=== PATIENT | male | born 1945 | race Caucasian/White ===

== ENCOUNTER 2017-01-13 20:52 | Inpatient (IN) | payer OTHER, BC ==
[~2017-01-13] VITALS: Ht 175.3 cm; Wt 80.3 kg
--- NOTE | ~2017-01-13 | H ---
[facility] [place] [address] HISTORY AND PHYSICAL Name: JEREMIAH GOLDSTEIN Room #: 315-P ADM IN M.R.#: [id number] Admission: 01/13/17 Attend Phys: Ronaldo Spaulding MD Discharge: Date of : 41 Report #: [id number] THIS REPORT FOR: //name// CC: Ronaldo Suarez DATE OF ADMISSION: 01/13/2017 DATE SEEN: 01/14/2017 ATTENDING PHYSICIAN: Dr. Spaulding. PRIMARY CARE PHYSICIAN: Jerry Suarez M.D. CHIEF COMPLAINT: Cough, fevers, chills, and shortness of breath. HISTORY OF PRESENT ILLNESS: The patient is a 71-year-old male who has not been feeling well over the last 4 days. He has developed a cough, which has been intermittently productive of some whitish colored sputum. His cough has been constant and he has been getting little rest because of it. He does have increasing shortness of breath as well. He has some chest tightness with coughing. He denies any recent exertional chest pain. He has had some subjective fevers with chills yesterday. He denies any ill contacts. He denies any prior history of lung disease. He does have known coronary artery disease and follows with Dr. Horne. In the ER, he was evaluated and noted to have mild hypoxia in the ER despite breathing treatments. Therefore, he is admitted for further evaluation. He does feel somewhat better after steroids and breathing treatments in the ER and his cough has improved since Phenergan and Codeine. PAST MEDICAL HISTORY: Diabetes, coronary artery disease with prior IA, hypertension, hyperlipidemia. PAST SURGICAL HISTORY: CABG x 5 vessels, cornea transplant. ALLERGIES: None. HOME MEDICATIONS: Zetia 10 mg daily, simvastatin 40 mg at bedtime, lisinopril 20 mg daily, metformin 1000 mg b.i.d., NovoLog insulin 16 units with meals, Lantus insulin 25 units at bedtime. SOCIAL HISTORY: The patient is a never smoker, denies any alcohol or drug use. He lives at home with his . He ambulates independently. He remains quite active. FAMILY HISTORY: There are multiple family members with coronary artery disease. There is no family member with lung disease. [address] [address] HISTORY AND PHYSICAL Name: JEREMIAH GOLDSTEIN Room #: 315-P [facility] IN M.R.#: [id number] Admission: 01/13/17 Attend Phys: Ronaldo Spaulding MD Discharge: Date of : 43 Report #: [id number] REVIEW OF SYSTEMS: The patient denies any history of ever having to see a associate professor of violin or being diagnosed with any chronic kidney disease, but he does say that his primary care physician is "watching my kidneys." All other 12-point review of systems was reviewed with the patient, otherwise negative unless stated in the HPI. PHYSICAL EXAMINATION: GENERAL: The patient is an alert male in no acute distress. VITAL SIGNS: Temperature is 36.9, heart rate 86, respirations 16, blood pressure is 131/65, oxygen 93% on 2 liters O2. HEENT: PERRLA. Sclerae is nonicteric. Oral mucosa is pink and moist. NECK: Supple, no JVD noted. CARDIAC: Normal S1, S2 with a 2/6 systolic ejection murmur. RESPIRATORY: Breath sounds are clear in bilateral upper lobes. He does have some coarseness to the left lower lobe. He is diminished in the right lower lobe. Breathing is nonlabored at rest. ABDOMEN: Soft, nontender, nondistended with positive bowel sounds. VASCULAR: No edema noted. Pedal pulses are 2+. NEUROLOGIC: The patient is alert and oriented x 3. Speech is clear. He is answering questions appropriately and following commands. No focal neuro deficits noted. LABORATORY AND DIAGNOSTICS DATA: WBC is 8.9, hemoglobin 13.6, platelets 143. Sodium 135, potassium 4.0, BUN 26, creatinine 1.6, glucose 234, bilirubin 1.4, AST is 47, alkaline phosphatase 157, influenza is negative. Troponins negative. EKG showing normal sinus rhythm and BNP is 221. Chest x-ray shows cardiomegaly. There is some suggestion of bilateral atelectasis versus scarring in the central left base. No acute chest process. ASSESSMENT AND PLAN: 1. Upper respiratory infections, mild hypoxia. Chest x-ray is not showing any pneumonia, but clinically he does have possibly early pneumonia. We will continue with Rocephin and Zithromax, add breathing treatments and try to wean oxygen as able. 2. Diabetes type 2. Continue home insulin regimen; add sliding scale insulin as long as he is on steroids. Check blood sugars a.c. and at bedtime. 3. Coronary artery disease with prior CABG. The patient is denying any chest pain. Troponins negative. 4. Hypertension. Blood pressure is stable, continue home meds. 5. Hyperlipidemia. Continue home meds. 6. Acute kidney injury versus chronic kidney disease stage III. Baseline creatinine is unknown. We will hold metformin and lisinopril and follow labs. 7. Deep vein thrombosis prophylaxis: Start Lovenox. [facility] [address] [place] [address] HISTORY AND PHYSICAL Name: JEREMIAH GOLDSTEIN Room #: 315-P ADM IN M.R.#: [id number] Admission: 01/13/17 Attend Phys: Ronaldo Spaulding MD Discharge: Date of : 43 Report #: [id number] We will continue to follow the patient closely throughout the hospitalization and make changes based on clinical status. <ELECTRONICALLY SIGNED> By: JOSETTE Snyder 01/15/17 0518 0645 [id number] JOSETTE Snyder /nt
--- NOTE | ~2017-01-13 | EKG ---
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 : 1945 Requested By: Cheri Das Order Number: [id number] MD: Kishore Urbano Measurements Intervals [place] Rate: 81 P: -40 VA: 205 QRS: -41 QRSD: 91 T: 104 QT: 353 QTc: 410 Interpretive Statements Sinus rhythm Inferior infarct, old Nonspecific ST-T wave abnormality No previous ECG available for comparison Electronically Signed On 01-14-2017 15:10:11 CDT by Kishore Urbano [email or web address] <ELECTRONICALLY SIGNED> By: Kishore Urbano MD, [facility] 01/14/17 1510 17 17 Kishore Urbano MD, [facility] /EPI
[2017-01-13 20:52] VITALS: BP 131/65
[2017-01-13] MEDS ORDERED: NOVOLOG FL100 UNIT/M SC (21:21)
[2017-01-13] MEDS ORDERED: LISINOPRIL20 MG PO (21:21)
[2017-01-13] MEDS ORDERED: SIMVASTATIN40 MG PO (21:21)
[2017-01-13] MEDS ORDERED: METFORMIN HCL500 MG PO (21:21)
[2017-01-13] MEDS ORDERED: ZETIA10 MG PO (21:21)
[2017-01-13] MEDS ORDERED: LANTUS SUBQ (21:21)
[2017-01-13 21:49] LABS: HEMATOCRIT 39.9 % (42.0-52.0); HEMOGLOBIN 13.6 gm/dL (14.0-18.0); MCH 33.9 pg (26.0-34.0); MCHC 34.2 g/dL (28.0-37.0); MCV 99.1 fL (80.0-100.0); PLATELET COUNT 143 thou/uL (150-400); RBC 4.02 mil/uL (4.50-6.00); RDW 13.2 % (10.5-14.5); WBC 8.9 thou/uL (4.0-11.0)
[2017-01-13 21:52] LABS: MANUAL DIFF YES
[2017-01-13 22:01] LABS: ANION GAP 10 mmol/L (7-16); BUN 26 mg/dL (7-18); CALCIUM 8.6 mg/dL (8.5-10.1); CHLORIDE 102 mmol/L (98-107); CO2 23 mmol/L (21-32); CREATININE 1.6 mg/dL (0.7-1.3); GLUCOSE 234 mg/dL (74-106); SODIUM 135 mmol/L (136-145)
[2017-01-13 22:10] LABS: ALBUMIN 3.4 g/dL (3.4-5.0); ALKALINE PHOSPHATASE 157 U/L (46-116); NT-PRO BRAIN NAT PEPTIDE 221 pg/mL (<300); SGOT 47 U/L (15-37); SGPT 64 U/L (30-65); TOTAL BILIRUBIN 1.4 mg/dL (<0.1-1.0); TOTAL PROTEIN 7.3 g/dL (6.4-8.2); TROPONIN-I < 0.04 ng/mL (<0.04-0.07)
[2017-01-13 23:31] LABS: ABSOLUTE NEUTROPHILS 7.8 thou/uL (1.4-8.2); TOTAL CELL COUNT 100
[2017-01-13 23:50] VITALS: BP 148/72
[2017-01-14 00:10] VITALS: BP 138/62
[2017-01-14 04:00] VITALS: BP 116/70
[2017-01-14 08:00] VITALS: BP 112/60
[2017-01-14 16:00] VITALS: BP 123/62
[2017-01-14 20:00] VITALS: BP 115/55
[2017-01-15 04:28] VITALS: BP 110/63
[2017-01-15 07:11] LABS: CALCIUM 7.8 mg/dL (8.5-10.1); CREATININE 1.3 mg/dL (0.7-1.3); POTASSIUM 4.3 mmol/L (3.5-5.1)
[2017-01-15 08:42] VITALS: BP 118/61
[2017-01-15 17:52] VITALS: BP 128/62
[2017-01-15 20:00] VITALS: BP 125/62
[2017-01-16 04:00] VITALS: BP 132/69
[2017-01-16 06:56] LABS: HEMATOCRIT 40.4 % (42.0-52.0); HEMOGLOBIN 13.6 gm/dL (14.0-18.0); MCH 33.3 pg (26.0-34.0); MCHC 33.6 g/dL (28.0-37.0); MCV 99.1 fL (80.0-100.0); RBC 4.08 mil/uL (4.50-6.00); RDW 13.3 % (10.5-14.5)
[2017-01-16 07:11] LABS: CREATININE 1.2 mg/dL (0.7-1.3)
[2017-01-16 07:56] VITALS: BP 143/72
[2017-01-16 11:17] VITALS: BP 148/72
[2017-01-16 15:51] VITALS: BP 151/67
[2017-01-16 20:45] VITALS: BP 135/63
[2017-01-17 05:55] VITALS: BP 162/69
[2017-01-17 06:35] LABS: HEMATOCRIT 43.9 % (42.0-52.0); HEMOGLOBIN 14.8 gm/dL (14.0-18.0); MCH 33.4 pg (26.0-34.0); MCHC 33.6 g/dL (28.0-37.0); MCV 99.2 fL (80.0-100.0); RBC 4.42 mil/uL (4.50-6.00); RDW 13.4 % (10.5-14.5); WBC 10.7 thou/uL (4.0-11.0)
[2017-01-17 06:46] LABS: CALCIUM 8.2 mg/dL (8.5-10.1); CREATININE 1.4 mg/dL (0.7-1.3)
[2017-01-17 08:09] VITALS: BP 172/84
[2017-01-17] MEDS ORDERED: CEFDINIR300 MG PO (10:13)
[2017-01-17] MEDS ORDERED: VENTOLIN HFA 1818 GM INH (10:13)
[2017-01-17] MEDS ORDERED: PREDNISONE 10 M10 MG PO (10:13)
[2017-01-17] MEDS ORDERED: PROMETHAZINE-C120 ML PO (10:14)
[2017-01-17] MEDS ORDERED: MUCINEX TA600 MG/TA1 PO (10:15)
[2017-01-17 10:18] VITALS: BP 172/84
== END 2017-01-17 10:45 | disposition home or self-care (01) | DRG 177 ==
LOC: ER 20:52 → EROBS 23:22 → 3N 23:22
PROVIDERS: Emergency Medicine; Hospitalist; Nurse Practitioner Acute Care
DX: J15.6 Pneumonia due to other Gram-negative bacteria (principal); J96.01 Acute respiratory failure with hypoxia; N17.9 Acute kidney failure, unspecified; J18.9 Pneumonia, unspecified organism; E11.9 Type 2 diabetes mellitus without complications; I10 Essential (primary) hypertension; I25.10 Atherosclerotic heart disease of native coronary artery without angina pectoris; E78.5 Hyperlipidemia, unspecified; J06.9 Acute upper respiratory infection, unspecified; Z95.1 Presence of aortocoronary bypass graft; Z94.7 Corneal transplant status; I25.2 Old myocardial infarction; Z79.899 Other long term (current) drug therapy; Z82.49 Family history of ischemic heart disease and other diseases of the circulatory system
CPT/HCPCS: 10096

== ENCOUNTER 2017-08-10 07:34 | Observation (INO) | payer OTHER, BC ==
[~2017-08-10] VITALS: Ht 175.3 cm; Wt 82.6 kg
[2017-08-10] VITALS (16 sets, daily range): BP systolic 131–168; BP diastolic 59–83
--- NOTE | ~2017-08-10 | CATHLAB ---
[facility] [place] [address] INVASIVE PROCEDURE REPORT Name: ANGELITAJEREMIAH Renetta Room #: 217-P [facility] IN [facility]#: [id number] Admission: 08/10/17 Attend Phys: Eber Horne, Discharge: 08/11/17 Date of : 41 Date of Service: 08/13/17 1735 Report #: [id number] THIS REPORT FOR: //name// APPROVED REPORT Patient Details Patient Status: Out-Patient Room #: The patient is a 71 year-old male Event Personnel Eber Horne Senior Power Scheduler, Christine Siegel CVT Monitor, Pietro Meneses RN, Pardeep Shaw RT(R)(CV) Scrub Procedures Performed Art Access - R femoral artery* 14151 Initial Mod Sed Same Phys/QHP Gr5y 617544 35866 Mod Sed Same Phys/QHP Ea 275333 SKYE Place w/wo Plasty Single OM 808047 Hemostasis with Manual pressure Procedure Narrative The patient was brought electively to the Cardiac Catheterization Laboratory and was prepped and draped in a sterile manner. A PINNACLE 6FR Sheath #[id number] sheath was inserted into the RFA 6fr^. Coronary angiography was performed using coronary diagnostic catheters. The patient tolerated the procedure well and there were no complications associated with the procedure. There was no hematoma. Intraoperative Conscious Sedation Sedation start time: 08:47 Case end Time: 09:06 Fentanyl 25.0 mcg Versed 1.5 mg Fluoro Time: 7.50 minutes Dose: DAP 5211.00 cGycm2 674 mGy Contrast Type and Amount: Omnipaque 40 ml Hemodynamics The aortic pressure is 149/61 mmHg with a mean of 164 mmHg. PCI Technique Lesion Percutaneous coronary intervention was performed on the first obtuse marginal branch segment. A LAUNCHER 6FR JR 4 #[id number] Guide Catheter was used to engage the ostium. A Luge Wire .014 x 182CM #[id number] Interventional Guidewire was used to cross the lesion. BALLOON DILATION [facility] [address] [place] [address] INVASIVE PROCEDURE REPORT Name: JEREMIAH GOLDSTEIN Room #: 217-P [facility]#: [id number] Admission: 08/10/17 Attend Phys: Eber Horne, Discharge: 08/11/17 Date of : 41 Date of Service: 08/13/17 1735 Report #: [id number] A Balloon catheter Sprinter OTW 2.5 x 15 #[id number] was inserted and inflated up to 12.00atm for 10seconds. STENT DEPLOYMENT A drug-eluting stent RESOLUTE OTW 3.0 X 15 #[id number] was inserted and inflated up to 14.00atm for 55seconds. Additional Inflation: 18.00atm for 17seconds. Conclusion #1 successful PTCA stent of a mid SVG to OM graft distal to previously placed stents 98% to 0% with placement of a 30 by 15 resolute drug-eluting stent postdilated 3.3 mm in size Recommendations plan continue aggressive risk factor modification dual antiplatelet therapy indefinitely. To CCU follow stent protocol <ELECTRONICALLY SIGNED> By: Eber Horne MD, FACC 08/13/17 1735 34 173 Eber Horne MD, FACC /INF
--- NOTE | ~2017-08-10 | EKG ---
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: BEBE : 1945 Requested By: Eber Horne Order Number: [id number] MD: Kishore Urbano Measurements Intervals [place] Rate: 70 P: -8 [place]: 219 QRS: -50 QRSD: 93 T: 123 QT: 379 QTc: 409 Interpretive Statements Sinus rhythm Borderline prolonged OH interval Inferior infarct, old Poor R wave progression ST and T wave abnormality, consider lateral ischemia Compared to ECG 01/13/2017 21:18:13 No significant change was found Electronically Signed On 08-12-2017 9:50:49 REEL WINDER by Kishore Urbano [email or web address] <ELECTRONICALLY SIGNED> By: Kishore Urbano MD, [facility] 08/12/17 0950 0758 0758 Kishore Urbano MD, [facility] /EPI
[~2017-08-10 07:34] MED LIST: CEFDINIR300 MG PO; LANTUS SUBQ; LISINOPRIL20 MG PO; METFORMIN HCL500 MG PO; MUCINEX TA600 MG/TA1 PO; NOVOLOG FL100 UNIT/M SC; PREDNISONE 10 M10 MG PO; PROMETHAZINE-C120 ML PO; SIMVASTATIN40 MG PO; VENTOLIN HFA 1818 GM INH; ZETIA10 MG PO
[2017-08-10] MEDS ORDERED: ZETIA10 MG PO (08:01)
[2017-08-10 08:04] LABS: HEMATOCRIT 47.5 % (42.0-52.0); HEMOGLOBIN 15.7 gm/dL (14.0-18.0); MCH 33.7 pg (26.0-34.0); MCHC 33.2 g/dL (28.0-37.0); MCV 101.7 fL (80.0-100.0); RBC 4.67 mil/uL (4.50-6.00); RDW 13.5 % (10.5-14.5); WBC 4.9 thou/uL (4.0-11.0)
[2017-08-10 08:08] LABS: CALCIUM 9.4 mg/dL (8.5-10.1); CREATININE 1.4 mg/dL (0.7-1.3); POTASSIUM 3.8 mmol/L (3.5-5.1)
[2017-08-10] MEDS ORDERED: METFORMIN HCL500 MG PO (11:50)
[2017-08-10] MEDS ORDERED: PLAVIX 75 MG TA75 M1 PO (11:51)
[2017-08-10] MEDS ORDERED: ASPIR-TRIN325 MG PO (11:53)
[2017-08-11 03:18] VITALS: BP 138/68
[2017-08-11 04:32] LABS: HEMATOCRIT 43.5 % (42.0-52.0); HEMOGLOBIN 14.5 gm/dL (14.0-18.0); MCH 33.6 pg (26.0-34.0); MCHC 33.4 g/dL (28.0-37.0); MCV 100.3 fL (80.0-100.0); RBC 4.34 mil/uL (4.50-6.00); RDW 13.7 % (10.5-14.5); WBC 5.4 thou/uL (4.0-11.0)
[2017-08-11 05:05] LABS: CALCIUM 8.8 mg/dL (8.5-10.1); CREATININE 1.4 mg/dL (0.7-1.3)
[2017-08-11 05:08] LABS: TROPONIN-I 1.33 ng/mL (<0.06)
[2017-08-11 05:36] LABS: TSH 0.8 uIU/mL (0.358-3.740)
[2017-08-11 07:52] VITALS: BP 130/70
[2017-08-11 10:39] LABS: CHOLESTEROL 126 mg/dL (<200); HDL CHOLESTEROL 52 mg/dL (>40); LDL CHOLESTEROL 62 mg/dL (<100); TC:HDL 2.4 Ratio (Not establshd); TRIGLYCERIDE 63 mg/dL (<150); VLDL 13 mg/dL (<40)
[2017-08-11 12:16] VITALS: BP 134/71
[2017-08-11 15:49] VITALS: BP 134/71
== END 2017-08-11 16:30 | disposition home or self-care (01) ==
LOC: CATH 07:34 → 2N 11:33
PROVIDERS: Internal Medicine Cardiovascular Disease; Psychiatry & Neurology Neurology; Psychiatry & Neurology Neuromuscular Medicine
DX: I25.10 Atherosclerotic heart disease of native coronary artery without angina pectoris (principal); R53.1 Weakness; I10 Essential (primary) hypertension; E78.00 Pure hypercholesterolemia, unspecified; G45.1 Carotid artery syndrome (hemispheric); E11.9 Type 2 diabetes mellitus without complications

== ENCOUNTER → 2018-10-10 | Outpatient (CLI) | payer OTHER, BC ==
[~2018-10-10] MED LIST changes: +ASPIR-TRIN325 MG PO; +PLAVIX 75 MG TA75 M1 PO
[2018-10-10 08:21] LABS: CREATININE 1.5 mg/dL (0.7-1.3)
== END ==
LOC: CAT 07:04
PROVIDERS: Family Medicine
DX: N20.0 Calculus of kidney (principal); K80.80 Other cholelithiasis without obstruction; R18.8 Other ascites; K74.69 Other cirrhosis of liver; J90 Pleural effusion, not elsewhere classified; J98.11 Atelectasis; M47.816 Spondylosis without myelopathy or radiculopathy, lumbar region

== ENCOUNTER → 2019-05-12 | Outpatient (CLI) | payer OTHER, BC ==
[~2019-05-12] VITALS: Ht 175.3 cm; Wt 83.0 kg
[~2019-05-12] MED LIST changes: +ALDACTONE50 MG PO; +LASIX 20 MG TAB20 MG PO; +VISTARIL 25 MG25 M1 PO
[2019-05-12 10:34] VITALS: BP 128/55
[2019-05-12 11:08] LABS: INR 1.1
[2019-05-12 12:11] VITALS: BP 107/36
[2019-05-12 12:28] VITALS: BP 120/49
[2019-05-12 12:33] VITALS: BP 113/49
[2019-05-12 12:38] VITALS: BP 107/46
[2019-05-12 12:54] VITALS: BP 113/46
[2019-05-12 12:54] LABS: CLARITY CLOUDY; COLOR DARK YELLOW; SOURCE ABDOMINAL; TOTAL VOLUME 35 mL
--- NOTE | 2019-05-12 12:58 | NUR ---
PT RETURNED FROM IR AWAKE AND ALERT. HAS BANDAID TO UPPER ABD BX SITE AND FOAM TAPE TO RT SIDE ABD WHERE FLUID WAS DRAINED. BOTH DRESSINGS C/D/I. PT ABD SOFT, NON-DISTENDED. PT TO LAY FLAT X1 HOUR THEN CAN DC HOME. FOOD TRAY ORDERED, PT GIVEN WATER.
[2019-05-12 13:21] LABS: BF NUCLEATED CELLS 183; BF RBC 1422
[2019-05-12 14:04] LABS: BF MACROPHAGE 31; BF NEUTROPHILS 20
[2019-05-13 10:08] LABS: SOURCE ABDOMINAL
[2019-05-13 16:10] LABS: BODY FLUID ALBUMIN 0.6 g/dL (()); BODY FLUID AMYLASE 21 U/L (()); BODY FLUID GLUCOSE 145 mg/dL (()); BODY FLUID LDH 43 IU/L (()); BODY FLUID PROTEIN 0.6 g/dL (())
--- NOTE | 2019-05-14 14:06 | PATH ---
[facility] [address] [place] [address] PATHOLOGY RPT PROCEDURE Name: JEREMIAH GOLDSTEIN Room #: REG [facility]#: [id number] Admission: 05/12/19 Date of : 41 Discharge: Report #: [id number] Path Case #: [id number] Note [facility] Accession Number: [id number] TESTS RESULT FLAG UNITS REF RANGE LAB Clinician Provided Cytology Information No. of containers..01 Other (Miscellaneous) Source: 01 ABDOMINAL FLUID DIAGNOSIS: 02 ABDOMINAL FLUID NEGATIVE FOR MALIGNANT CELLS. REACTIVE MESOTHELIAL CELLS ARE PRESENT. THIS INTERPRETATION INCLUDES EVALUATION OF A CELL BLOCK. Signed out by: 02 Thom Weaver MD, Pathologist NPI- [id number] Performed by: 01 Airam Brito, Compliance Testing Analyst ([facility]) Gross description: 01 10ML, YELLOW, CLOUDY /LCS FLAG LEGEND: L-Low Normal,H-High Normal,LL-Alert Low,HH-Alert High <-Panic Low,>-Panic High,A-Abnormal,AA-Critical Abnormal Performed at: [address] [place] [address] Pérez Styles MD, [address] [address] Karina Sotelo MD, Specimen Comment: A duplicate report has been generated due to demographic updates. Performed at: [address], [place], [place] [address] MD Pérez Styles MD Phone: [phone]
--- NOTE | 2019-05-27 13:06 | PATH ---
[facility] [address] [place] [address] PATHOLOGY RPT PROCEDURE Name: SHINE MERRILL Renetta Room #: REG [facility] Shea.#: [id number] Admission: 05/12/19 Date of : 41 Discharge: Report #: [id number] Path Case #: [id number] [facility] Accession Number: [id number] . 01 Material submitted: . liver - LIVER BIOPSY . 01 Clinical history: . Cirrhosis, . 02 Diagnosis: Liver, needle biopsy: - Cirrhosis, with chronic cholestatic features, rare epithelioid granulomata, minimal lobular necro-inflammatory activity, and mild interface activity (Stage 4/4 Grade 1-2/4) - (see comment) (MLK: 05/27/2019) . The case was prepared and proofread by Dr. Sierra and electronically released by Dr. Weaver. QTP/05/27/2019 . 02 Comment: History: 73 year old male with a h/o diabetes mellitus and cirrhosis. 05/09/2019 Glc - 239, AST- 66, ALT - 64, Alk Phos - 267, Tbili - 0.8, T Protein - 6.2, Alb - 3.4 plt 174k . The liver biopsy shows mildly active cirrhosis with chronic cholestatic features, rare epithelioid granulomata and minimal steatosis, in keeping with the cholestatic pattern of LFT abnormality. Chronic cholestasis certainly can arise in the setting of long standing cirrhosis, but granulomatous inflammation also typically associated with cholestatic injury. . The differential diagnosis for hepatic granulomata is quite lengthy and includes, infectious etiologies, adverse drug reactions. sarcoidosis, autoimmune disease, and rarely as a paraneoplastic phenomenon. Please correlate clinically. (MLK: 05/27/2019) . 02 Electronically signed: . Thom Weaver MD, Pathologist NPI- [id number] . 01 Gross description: . The specimen is received in formalin, labeled "Shine Merrill, liver BX X3 ", are three needle cores of hastings-brown soft tissue measuring 0.7 cm, [address] [address] PATHOLOGY RPT PROCEDURE Name: SHINE MERRILL Room #: REG [facility].#: [id number] Admission: 05/12/19 Date of : 41 Discharge: Report #: [id number] Path Case #: [id number] 0.9 cm and 1.4 cm in length and up to 0.1 cm in diameter. The specimen is entirely submitted in A1-A3. (SWS; 05/12/2019) SHS/SHS . 02 Microscopic: . There is cirrhosis with bands of fibrous connective tissue surrounding regenerative nodules. The trichrome stain highlights the fibrous bands and also accentuates prominent bile ductular proliferation, with its typically associated neutrophilic infiltrate. Interlobular bile ducts show mild to moderate injury, with areas of nuclear dropout and reactive change. Juliana-septal hepatocytes show features of cholate stasis with a rarified, bubbly appearing cytoplasm. Many of these same hepatocytes contain large Namita -Denk bodies. Scattered lipogranulomas are noted. Macro-vesicular steatosis is minimal . At the edge of one of the needle cores are two small epithelioid granulomas. Special stains for organisms are not performed due to the limited amount of granulomatous inflammation. . The reticulin stain outlines irregularly thickened hepatic plates compatible with regenerative nodule formation. The iron stain is negative. The PAS stain shows glycogenated hepatocytes. Numerous ceroid laden Kupffer cells are noted on the PASD stain, compatible with previous hepatocyte dropout. (MLK: 05/27/2019) . 02 Pathologist provided ICD-10: K74.60, K75.3, K76.0 . 02 CPT . 785428, 673487, 905418, 305125, 439801 Specimen Comment: A courtesy copy of this report has been sent to Specimen Comment: [phone], , . Specimen Comment: Report sent to ,DR SPEARS / DR LUKE Performed at: 01 [facility] [address] [facility] [address], [place] [id number] MD Pérez Styles MD Phone: [phone] Performed at: [address] [place] [facility] [address] [place], [place] [id number] MD Emile Lopez MD Phone: [phone]
== END | disposition home or self-care (01) ==
LOC: ULTRA 09:57
PROVIDERS: Radiology Vascular & Interventional Radiology; Specialist
DX: R18.8 Other ascites (principal); K75.3 Granulomatous hepatitis, not elsewhere classified; K74.60 Unspecified cirrhosis of liver; K76.0 Fatty (change of) liver, not elsewhere classified; I10 Essential (primary) hypertension; I25.10 Atherosclerotic heart disease of native coronary artery without angina pectoris; I25.2 Old myocardial infarction; E11.9 Type 2 diabetes mellitus without complications; K21.9 Gastro-esophageal reflux disease without esophagitis; E78.5 Hyperlipidemia, unspecified; Z79.4 Long term (current) use of insulin; Z94.7 Corneal transplant status; Z79.899 Other long term (current) drug therapy; Z95.1 Presence of aortocoronary bypass graft; Z98.61 Coronary angioplasty status; Z86.73 Personal history of transient ischemic attack (TIA), and cerebral infarction without residual deficits; Z98.890 Other specified postprocedural states

== ENCOUNTER → 2019-06-05 | Outpatient (CLI) | payer OTHER, BC ==
[~2019-06-05] MED LIST changes: +ASPIR 8181 M1 PO
[2019-06-05 13:17] LABS: INR 1.1
[2019-06-05 14:20] VITALS: BP 124/49
--- NOTE | 2019-06-05 14:54 | NUR ---
CAME TO THE CLINIC FROM ULTRASOUND DEPT POST PARACENTESIS. ALERT AND ORIENTED X 4. DENIED PAIN. NO LEAKAGE NOTED FROM PARACENTESIS SITE. 5L ASCITIC FLUID REMOVED IN ULTRA SOUND. PER ORDER, IF 4-6L FLUID REMOVED GIVE 25 GMS ALBUMIN IV, WHICH WAS GIVEN. TOLERATED INFUSION WELL. WITH PATIENT. REMOVED IV AND DISMISSED IN STABLE CONDITION.
== END | disposition home or self-care (01) ==
LOC: ULTRA 08:52
PROVIDERS: Specialist
DX: R18.8 Other ascites (principal); Z98.890 Other specified postprocedural states; Z87.01 Personal history of pneumonia (recurrent); Z86.73 Personal history of transient ischemic attack (TIA), and cerebral infarction without residual deficits; Z79.82 Long term (current) use of aspirin; Z79.899 Other long term (current) drug therapy; Z79.4 Long term (current) use of insulin
CPT/HCPCS: 95000

== ENCOUNTER → 2019-07-28 | Outpatient (CLI) | payer OTHER, BC ==
[~2019-07-28] MED LIST changes: +HYDROXYZINE HCL25 M2 PO; +LACTULOSE PO; +LEVEMIR FL100 UNIT/2 SUBQ; +LISINOPRIL2.5 MG PO; +OMEPRAZOLE 20 M20 M1 PO; +ROXICODONE5 M2 PO; +VITAMIN E1000 UNIT PO
== END ==
LOC: OPONC 07-25 13:36
DX: K74.60 Unspecified cirrhosis of liver (principal); R18.8 Other ascites

== ENCOUNTER 2019-08-07 15:01 | Inpatient (IN) | payer OTHER, BC ==
[~2019-08-07] VITALS: Ht 172.7 cm; Wt 76.7 kg
--- NOTE | ~2019-08-07 | HC ---
[facility] [place] [address] CONSULTATION Name: JEREMIAH GOLDSTEIN Room #: 463-P ADM IN M.R.#: [id number] Admission: 08/07/19 Attend Phys: Ronaldo Spaulding MD Discharge: Date of : 41 Report #: [id number] THIS REPORT FOR: //name// CC: Ronaldo Pollocktashia DATE OF SERVICE: 08/11/2019 HISTORY OF PRESENT ILLNESS: The patient is a 73-year-old male with history of end-stage liver disease, has followed with [facility] with consideration for liver transplant. He did have a fall after climbing two steps into his house. He hit his head on the concrete, had a laceration of his occiput. His noted that he was stunned, would not respond for at least a minute before gradually starting to answer. CT of the head was negative. He has had problems with worsening functional mobility with gait instability over the past few weeks. He also sustained left-sided rib fractures noted to involve the left 7th and 8th ribs. The patient has since underwent a paracentesis on 08/08/2019. There is a documentation of some encephalopathy. He has acute on chronic renal insufficiency. He does have the chronic abdominal distention secondary to ascites. He also has an old cerebrovascular accident with some residual left-sided hemiparesis. We are seeing him now in rehabilitation medicine consultation. PAST MEDICAL HISTORY His prior medical history is delineated above. He does have a history of diabetes mellitus type 2, coronary artery bypass grafting x 5, coronary transplant, coronary artery disease, hypertension, coronary angioplasty, cirrhosis/diabetic induced paracentesis. indicates that the plan is for him to have regular paracentesis on a weekly basis on Fridays. MEDICATIONS: Please see the full medication listing. ALLERGIES: No known drug allergies. HABITS: No history of tobacco or alcohol abuse is noted. SOCIAL HISTORY: Lives in a house with his , 2 steps in. is retired. son, has placed a toilet seat, rails, and steps and had a handheld shower. REVIEW OF SYSTEMS: No complaints of chest pain, shortness of breath or abdominal discomfort. He has developed a wound noted on his buttocks with nursing closely involved. PHYSICAL EXAMINATION: GENERAL: A 73-year-old white male in no obvious distress. VITAL SIGNS: Last recorded temperature 97.9, pulse 69, respirations 16, blood pressure 109/56. [facility] [address] [place] [address] CONSULTATION Name: JEREMIAH GOLDSTEIN Room #: 463-P [facility] IN [facility].#: [id number] Admission: 08/07/19 Attend Phys: Ronaldo Spaulding MD Discharge: Date of : 41 Report #: [id number] NEUROLOGIC: He is alert, pleasant, and oriented. There is a definite latency to his responses however. Tends to defer some of his answers to his . He will follow basic 1 step commands. Facies appeared to be symmetric. He does have definite abdominal distention. He has the occipital area, which is dressed. I did not examine his buttock area where he is noted to have a skin breakdown. EXTREMITIES: He has functional range of motion of both upper and lower extremities. Appears to have some slight decreased strength of that left upper extremity 4- compared to the right upper extremity, which is more of a grade 4/5. Left lower extremity is probably at 3+ to 4- compared to the right, which is more of a 4-. DTRs are trace to 1. Sensation was reasonably intact to simultaneous stimulation. He is min assist with sit to stand. Gait was 150 feet min assist with a front-wheeled walker. ASSESSMENT: A 73-year-old white male with the following problem list: 1. Fall on concrete with head injury and occipital laceration. 2. Encephalopathy, which is documented. Appears toxic metabolic. 3. Gait instability with frequent falls. 4. Prior cerebrovascular accident with mild residual right-sided weakness. 5. End-stage liver disease, status post paracentesis. 6. Acute renal insufficiency superimposed on chronic kidney disease. 7. Left 7th and 8th rib fractures post fall. 8. Diabetes mellitus type 2. 9. Buttock area of breakdown. 10. Generalized weakness and debilitation. 11. Hyponatremia, sodium of 123. PLAN: The patient is a candidate for an acute in-hospital inpatient rehabilitation stay. ____ on transfer to the [address] [place] [address] acute inpatient rehab santos when medically ready and a bed available. By: 1435 0037 Arvin Warren MD /nt
[~2019-08-07 15:01] MED LIST changes: -HYDROXYZINE HCL25 M2 PO; -LACTULOSE PO; -LEVEMIR FL100 UNIT/2 SUBQ; -LISINOPRIL2.5 MG PO; -OMEPRAZOLE 20 M20 M1 PO; -ROXICODONE5 M2 PO; -VITAMIN E1000 UNIT PO
[2019-08-07 15:09] VITALS: BP 130/24
[2019-08-07] MEDS ORDERED: ROXICODONE5 M2 PO (16:12)
[2019-08-07 17:19] LABS: INR 1.1
[2019-08-07 18:00] LABS: HEMATOCRIT 37.6 % (42.0-52.0); HEMOGLOBIN 12.2 gm/dL (14.0-18.0); MCH 31.7 pg (26.0-34.0); MCHC 32.6 g/dL (28.0-37.0); MCV 97.2 fL (80.0-100.0); RBC 3.86 mil/uL (4.50-6.00); WBC 11.4 thou/uL (4.0-11.0)
[2019-08-07 18:08] LABS: CALCIUM 9.2 mg/dL (8.5-10.1); CREATININE 2.2 mg/dL (0.7-1.3); POTASSIUM 5.4 mmol/L (3.5-5.1)
[2019-08-07 18:15] LABS: ALBUMIN 2.8 g/dL (3.4-5.0); TOTAL PROTEIN 7.5 g/dL (6.4-8.2)
[2019-08-07 19:19] LABS: ALBUMIN 2.9 g/dL (3.4-5.0); TOTAL PROTEIN 7.1 g/dL (6.4-8.2)
[2019-08-07 19:28] VITALS: BP 112/53
[2019-08-07 20:19] LABS: TSH 2.033 uIU/mL (0.358-3.740)
[2019-08-07 20:43] VITALS: BP 115/41
[2019-08-07 21:10] VITALS: BP 128/63
--- NOTE | 2019-08-07 23:51 | NUR ---
ADMISSION ASSESSMENT COMPLETED.PT ACCOMPANIED BY . PT IS ALERT AND ORIENTED X 4. HE IS VERY WEAK. WAS ABLE TO WALK TO THE BATHROOM-HE JUST NEEDS EXTRA TIME. PT HAD A BM. VOIDING OKAY. SOME PEDAL EDEMA.C/O ABDOMINAL DISCOMFORT DUE TO ASCITES. HE HAS PAIN WITH MOVEMENT.PAIN WELL MANAGED WITH FENTANYL. BY BEDSIDE. ELEVATED HS BLOOD SUGAR-PT REPORTS HE DID NOT TAKE ANY INSULIN THE WHOLE DAY.FALL PREC IN PLACE.CALL LIGHT WITHIN REACH.
[2019-08-08 05:06] VITALS: BP 124/70
[2019-08-08 06:13] LABS: HEMATOCRIT 36.3 % (42.0-52.0); HEMOGLOBIN 11.8 gm/dL (14.0-18.0); MCH 31.9 pg (26.0-34.0); MCHC 32.6 g/dL (28.0-37.0); MCV 97.9 fL (80.0-100.0); RBC 3.71 mil/uL (4.50-6.00); RDW 15.1 % (10.5-14.5); WBC 9.1 thou/uL (4.0-11.0)
[2019-08-08 06:22] LABS: CREATININE 2.2 mg/dL (0.7-1.3); MAGNESIUM 2.5 mg/dL (1.8-2.4)
[2019-08-08 06:30] LABS: INR 1.1; PROTIME 11.6 Seconds (9.3-11.4)
[2019-08-08 07:59] VITALS: BP 114/59
[2019-08-08 08:49] LABS: ALBUMIN 2.6 g/dL (3.4-5.0); DIRECT BILIRUBIN 0.5 mg/dL (<0.1-0.3); TOTAL PROTEIN 6.9 g/dL (6.4-8.2)
[2019-08-08 10:17] LABS: URINE BILIRUBIN NEGATIVE (Negative); URINE BLOOD NEGATIVE (Negative); URINE CLARITY CLEAR; URINE COLOR YELLOW; URINE GLUCOSE-RANDOM* TRACE (Negative); URINE KETONES NEGATIVE (Negative); URINE LEUKOCYTES NEGATIVE (Negative); URINE NITRITE NEGATIVE (Negative); URINE PROTEIN (DIPSTICK) NEGATIVE (Negative); URINE SPECIFIC GRAVITY 1.025 (1.005-1.035); URINE UROBILINOGEN 0.2 E.U./dl (0.2-1.0)
--- NOTE | 2019-08-08 10:51 | NUR ---
WOUND CARE NOTE spouse in room, states pressure injury started several months ago, she treated area w/ iodine and improved but in last week reopened, pt sits in chair several hours a day and is unable to lay on side in bed due to abd discomfort, strongly encouraged off loading, pressure relief. sitting on gel or pressure relief cushion, sacral wound ~4cm x 3cm x.3cm, pinkish tissue, scant drainage, blanchabe, pt and spouse verbalized understanding of care, spouse states may dc tomorrow. suggested home health if needed or f/u w/ pcp or wound dr if worsens recommendations: off loading as much as possible, turn q2 while awake, pressure relief pillow or gel, zguard w/ border foam drsg daily and prn
[2019-08-08 12:32] LABS: CLARITY HAZY; COLOR YELLOW; SOURCE ASCITES; TOTAL VOLUME 22 mL
[2019-08-08 12:50] LABS: BF NUCLEATED CELLS 145; BF RBC 577
--- NOTE | 2019-08-08 13:33 | NUR ---
INITIAL ASSESSMENT: SW reviewed chart and spoke with nursing. Pt was admitted from home after a fall. Pt with rib fx and hx of end stage liver disease. Pt is being evaluated at [facility] for a liver transplant. Pt sees Dr. Liu as an outpatient. His last outpatient paracentesis was on 07/31 and had 6L removed. Pt off the unit having paracentesis earlier today. Per chart, pt lives at home with his . Prior to admission, pt was independent with ADLs. Pt does have a cane. 2 steps into the home. Pt's needs can be met on the ground level. Pt's PCP is Dr. Suarez. Plan is for pt to discharge home when medically stable. EULOGIO is following to assist as needed with discharge planning.
[2019-08-08 13:35] LABS: BF MACROPHAGE 29; BF NEUTROPHILS 5
[2019-08-08 15:09] VITALS: BP 108/49
--- NOTE | 2019-08-08 15:11 | NUR ---
Nutrition: REC consider adding 2 gm Na+ restriction if pt continues to eat well.
[2019-08-08 15:21] LABS: URINE CREATININE-RANDOM* 201.1 mg/dL
--- NOTE | 2019-08-08 20:07 | NUR ---
Assumed Pt care @ 0700am. Assessment completed, VSS, A&Ox4. Pt scheduled for paracentesic and pulled off 4.7 liters. Pt fell and is sore on sacrum and left side. Pain is noted from Pt's grimace but Pt rarely asks for meds so offered to provide pain med when adjusting Pt in bed or so Pt can rest. Pt on low dose SS. Albumin ordered for Pt and infused due to pulling over 4 liters. Pt tolerates meals well. and son present today.
[2019-08-08 20:12] VITALS: BP 108/56
[2019-08-09 05:10] LABS: ALBUMIN 2.6 g/dL (3.4-5.0); CALCIUM 8.5 mg/dL (8.5-10.1); CREATININE 1.8 mg/dL (0.7-1.3); PHOSPHORUS 3.1 mg/dL (2.5-4.9); POTASSIUM 4.8 mmol/L (3.5-5.1)
--- NOTE | 2019-08-09 05:27 | NUR ---
Pt. rested quietly at intervals during the night when checked on during frequent rounds. He c/o sacral pain and was given po pain meds (see emar) with some relief noted. Up to the bathroom with assistance of one and gait belt. Bed alarm is on.
[2019-08-09 08:00] VITALS: BP 109/48
[2019-08-09 08:38] LABS: SOURCE ABDOMINAL
[2019-08-09 15:00] VITALS: BP 101/48
--- NOTE | 2019-08-09 16:49 | NUR ---
PATIENT ALERT AND ORIENTED X4, PAIN MILDLY CONTROLLED WITH PO MEDICATION. LIDOCAIN PATCH ORDERED AND PLACED TO LEFT BACK AREA WITH SOME IMPROVEMENT. PATIENT UP TO CHAIR FOR THE DURATION OF THE SHIFT. NO SIGNS OF ACUTE DISTRESS NOTED AT THIS TIME. WILL CONTINUE TO MONITOR.
[2019-08-09 20:04] VITALS: BP 108/61
--- NOTE | 2019-08-10 05:06 | NUR ---
Pt. rested quietly at intervals during the night when checked on during frequent rounds. He did c/o back pain and was medicated (see emar) with some relief noted. Bed alarm is on.
[2019-08-10 06:06] LABS: ALBUMIN 3.4 g/dL (3.4-5.0); CALCIUM 8.3 mg/dL (8.5-10.1); CREATININE 1.8 mg/dL (0.7-1.3); PHOSPHORUS 2.7 mg/dL (2.5-4.9); POTASSIUM 4.7 mmol/L (3.5-5.1)
[2019-08-10 08:06] LABS: BODY FLUID ALBUMIN 0.3 g/dL (Not Estab.); BODY FLUID AMYLASE 29 U/L (()); BODY FLUID GLUCOSE 221 mg/dL (()); BODY FLUID LDH 48 IU/L (()); BODY FLUID PROTEIN 0.8 g/dL (())
[2019-08-10 08:08] VITALS: BP 116/66
--- NOTE | 2019-08-10 12:34 | NUR ---
PT A&OX4, VSS, PAIN IN RIBS AND BACK. PAIN MEDICATION GIVEN. LUNGS CLEAR, NO SIGNS OF DISTRESS. PATIENT TOLERATING DIET. ABDOMEN DISTENDED, BOWEL SOUNDS ACTIVE. CLARISSA REMAIN IN BACK OF HEAD. WILL CONTINUE TO MONITOR PATIENT.
[2019-08-10 16:00] VITALS: BP 112/61
[2019-08-10 19:50] VITALS: BP 119/53
[2019-08-11 00:09] VITALS: BP 109/56
--- NOTE | 2019-08-11 05:00 | NUR ---
Assessments completed. pt a&ox4. no major changes overnight. pain controlled with current regimen. v/s stable. following POC. no s/s of distress. cont monitoring
[2019-08-11 05:08] LABS: CALCIUM 8.7 mg/dL (8.5-10.1); CREATININE 1.8 mg/dL (0.7-1.3); PHOSPHORUS 2.9 mg/dL (2.5-4.9); POTASSIUM 4.9 mmol/L (3.5-5.1)
--- NOTE | 2019-08-11 11:03 | NUR ---
WOUND CARE F/U wound assessed w/ direct support staff member Santa, sacral wound w/ some healing present but dti present left edge wound, blanchable, scant drainage, c/o pain w/ ulcer but states zguard and border drsg relieves some pain, strongly encouraged to turn more in bed, off loading, seat cushion, verbal understanding, coopertive recommendations; cont current tx w/ zguard, border silicone drsg daily and prn, low air loss mattress pump
--- NOTE | 2019-08-11 11:46 | NUR ---
PT A&OX4, VSS, PAIN IN BUTTOCK AND RIBS. PAIN MEDICATION GIVEN. PATIENT UP TO RECLINER AND ENCOURAGED NOT TO SIT IN RECLINER TOO LONG D/T WOUND ON BOTTOM. PT AND OT WORKED WITH PATIENT. NO SIGNS OF DISTRESS. PLAN IS TO MOVE TO 5[facility] TODAY. WILL CONTINUE TO MONITOR.
--- NOTE | 2019-08-11 12:25 | NUR ---
SW reviewed chart and spoke with nursing and attending physician. Pt is progressing towards goals for discharge. Therapy ordered to evaluate pt. [facility] consult ordered to evaluate pt for possible admission to inpt acute rehab. EULOGIO met with pt at bedside. Introduced role of SW. Pt is alert/orientated x 4. Pt reports he lives at home with his . Prior to admision, pt was independent with ADLs. Pt does not use any DME. Pt states that his family have made his house more accessible for him. Pt is agreeable with post-acute placement. SW discussed 5N evaluation and also provided pt with list of SNFs for review. Awaiting input from Matthew at this time. EULOGIO is following to assist as needed with discharge planning.
--- NOTE | 2019-08-11 14:11 | HC ---
[facility] [place] [address] [place] [address] CONSULTATION Name: JEREMIAH GOLDSTEIN Room #: 463-P ADM IN M.R.#: [id number] Admission: 08/07/19 Attend Phys: Ronaldo Spaulding MD Discharge: Date of : 41 Report #: [id number] THIS REPORT FOR: //name// CC: Ronaldo Pollocktashia DATE OF SERVICE: 08/08/2019 REASON FOR CONSULTATION: Elevated creatinine. REASON FOR PRESENTATION: Post fall. HISTORY OF PRESENT ILLNESS: A 73-year-old with end-stage liver disease, who was recently declined from the transplant list after visiting with SHANELLE yesterday. He is known to have cirrhosis, coronary artery disease. He had a fall and presented to be further evaluated. He was found to have rib fractures and was admitted to be further evaluated. The patient's creatinine value was elevated on presentation at 2.2. Of notice is the fact that the patient's creatinine back in 2017 was around 1.4. Most recently in 09/2018 it has been rising from 1.5-2.2. He suffers from recurrent ascites and is maintained on torsemide 100 once a day along with spironolactone. He denies any urinary symptoms. No fever or chills. He does report abdominal distention. PAST MEDICAL HISTORY: 1. Diabetes mellitus. 2. Status post CABG. 3. Corneal transplant. 4. End-stage liver disease. 5. Hyperlipidemia. 6. Hypertension. 7. Elevated PSA. 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 9. Coronary artery disease. 10. Status post liver biopsy. 11. Multiple paracenteses. MEDICATIONS: 1. Furosemide. 2. Spironolactone. 3. Aspirin. 4. Lantus. 5. Simvastatin. ALLERGIES: None. SOCIAL HISTORY: He denies drug or alcohol abuse. [facility] [address] [place] [address] CONSULTATION Name: JEREMIAH GOLDSTEIN Room #: 463-P ADM IN .R.#: [id number] Admission: 08/07/19 Attend Phys: Ronaldo Spaulding MD Discharge: Date of : 41 Report #: [id number] REVIEW OF SYSTEMS: GENERAL: No fever or chills, but significant for weakness. CARDIOVASCULAR: No chest pain or palpitation. PULMONARY: No cough or hemoptysis. GASTROINTESTINAL: No nausea or vomiting. GENITOURINARY: No frequency, no urgency. MUSCULOSKELETAL: As per the history of present illness. SKIN: No rash or ulcerations. PHYSICAL EXAMINATION: VITAL SIGNS: Blood pressure is 124/70, temperature is 36.4. HEAD AND NECK: No jugular venous distention. CHEST: Decreased air entry bilaterally. CARDIOVASCULAR: No rub detected. ABDOMEN: Distended with ascites. LOWER EXTREMITIES: No edema. LABORATORY VALUES: Reviewed. Sodium is 124, BUN is 50, creatinine is 2.2. ASSESSMENT, IMPRESSION AND PLAN: 1. Acute kidney injury. 2. Chronic kidney disease. 3. End-stage liver disease. 4. Status post fall with rib fractures. 5. Hyperkalemia with potassium of 5.4 on presentation. 6. We will start the appropriate investigations for his acute kidney injury, but this could all be related to his liver issues. 7. Agree with holding the diuretic at this point. 8. Liver management per the liver team. 9. Diabetic diet along with his usual diabetic medications. 10. Avoid nephrotoxins. 11. Watch urine output. 12. Watch electrolytes, potassium issues seems to have resolved. <ELECTRONICALLY SIGNED> By: Kirill Thomas MD 08/11/19 1411 [id number] Kirill Thomas MD /nt
[2019-08-11 15:00] VITALS: BP 105/52
--- NOTE | 2019-08-11 15:37 | NUR ---
PATIENT SEEN BY DR. HAM FOR ACUTE REHAB CONSULT THIS DATE. PATEINT IS A CANDIDATE FOR [facility] AND HAS A QUALIFYING DX. WILL CONTINUE TO FOLLOW AND FACILITATE ADMISSION TO ACUTE REHAB IF THAT IS THE PATIENT'S CHOICE, PATIENT CONTINUES TO HAVE FUNCTIONAL/MEDICAL NEEDS AND THERE IS BED AVAILABILITY. THANK YOU FOR THIS REFERRAL.
[2019-08-11] MEDS ORDERED: LEVEMIR FL100 UNIT/2 SUBQ (15:47)
[2019-08-11] MEDS ORDERED: LISINOPRIL2.5 MG PO (15:48)
[2019-08-11] MEDS ORDERED: LACTULOSE PO (15:49)
[2019-08-11] MEDS ORDERED: OMEPRAZOLE 20 M20 M1 PO (15:49)
[2019-08-11] MEDS ORDERED: VITAMIN E1000 UNIT PO (15:50)
[2019-08-11] MEDS ORDERED: HYDROXYZINE HCL25 M2 PO (15:53)
--- NOTE | 2019-08-11 17:06 | PATH ---
[facility] [address] [place] [address] PATHOLOGY RPT PROCEDURE Name: JEREMIAH GOLDSTEIN Room #: 463-P ADM IN M.R.#: [id number] Admission: 08/07/19 Date of : 41 Discharge: Report #: [id number] Path Case #: [id number] Note [facility] Accession Number: [id number] TESTS RESULT FLAG UNITS REF RANGE LAB Clinician Provided Cytology Information No. of containers..01 Other (Miscellaneous) Source: 01 ABDOMINAL FLUID DIAGNOSIS: 02 ABDOMINAL FLUID NEGATIVE FOR MALIGNANT EPITHELIAL CELLS. REACTIVE MESOTHELIAL CELLS ARE PRESENT. THIS INTERPRETATION INCLUDES EVALUATION OF A CELL BLOCK. SCANTLY CELLULAR SPECIMEN WITH RARE INFLAMMATORY CELLS IN THE BACKGROUND. Pathologist ICD10: 02 R18.8 Signed out by: 02 Karina Sotelo MD, Pathologist NPI- [id number] Performed by: Reginaldo Silverman, [employer] ([facility]) Gross description: 01 5 ML, SANTAMARIA, CLEAR /LCS 09/23/1840 0000 Local FLAG LEGEND: L-Low Normal,H-High Normal,LL-Alert Low,HH-Alert High <-Panic Low,>-Panic High,A-Abnormal,AA-Critical Abnormal Performed at: 01 [facility] [address] [place] [address] Pérez Styles MD, [address] [address] Karina Sotelo MD, Specimen Comment: A courtesy copy of this report has been sent to [phone] Specimen Comment: [id number] Specimen Comment: [id number] Specimen Comment: Report sent to / DR SPEARS Specimen Comment: A duplicate report has been generated due to demographic updates. Performed at: [address] [address] PATHOLOGY RPT PROCEDURE Name: JEREMIAH GOLDSTEIN Room #: 463-P ADM IN M.R.#: [id number] Admission: 08/07/19 Date of : 41 Discharge: Report #: [id number] Path Case #: [id number] [address], [place], [place] [id number] MD Pérez Styles MD Phone: [phone]
[2019-08-11 20:25] VITALS: BP 113/52
--- NOTE | 2019-08-12 04:19 | NUR ---
Assumed care of pt @1915. pt a&ox4. no changes overnight. v/s stable. no s/s of acute distress. following poc. pt is hoping to go to [facility] today for rehab. will cont to monitor
[2019-08-12 05:43] LABS: CALCIUM 8.8 mg/dL (8.5-10.1); CREATININE 1.8 mg/dL (0.7-1.3); PHOSPHORUS 2.8 mg/dL (2.5-4.9); POTASSIUM 4.8 mmol/L (3.5-5.1)
[2019-08-12 06:40] LABS: ALBUMIN 4.6 g/dL (3.4-5.0)
[2019-08-12 07:58] VITALS: BP 103/51
--- NOTE | 2019-08-12 08:29 | NUR ---
Nutrition: Following for appetite progress, supplement tolerance. Visited pt and in room this AM. Remains on heart healthy diet. Voices great appetite improvement over the weekend, eating very well again. Ate 100% of all meals on 08/09; no meals recorded the last 2 days, but pt voices high PO intake. Not a big fan of Glucerna, but tolerates and drinks BID. Plan decrease to 1/day as he returned to baseline PO. BG 152-245 mg/dl (08/11), on Lantus + SSI. Helped modify lunch today to chicken salad, side salad, peaches. D/t ascites w/ plans for regular paracentesis, recommend more intensive Na reduction w/ 2g Na diet. Possible d/c to [facility] rehab later today? Stage 3 sacrum wound in healing stages per EMR. Shared protein foods to prioritize. Changing to low nutrition risk.
--- NOTE | 2019-08-12 10:41 | NUR ---
WOUND CARE F/U pt up in chair, spouse present, spouse states she has been applying zguard 2 or 3x day, ulcer improving, some healing present, encouraged pt again to not sit long periods, off loading, pressure relief as much as possible, sit on soft cushion, verbal understanding recommendations; cont same tx, zguard, silicone border or plain foam chidi
--- NOTE | 2019-08-12 13:07 | NUR ---
SW reviewed chart and spoke with nursing and attending physician. SW discussed case with reservations and ticketing agent who states they are able to accept pt. Awaiting bed availability on 5 at this time. SW met with pt at bedside to provide update. Pt is aware and agreeable with discharge plan. SW is following to assist as needed with discharge planning.
[2019-08-12 16:09] VITALS: BP 108/47
[2019-08-12 19:05] VITALS: BP 112/63
--- NOTE | 2019-08-12 19:43 | NUR ---
PT A&OX4, VSS, PAIN IN BACK AND RIBS. MEDICATION GIVEN FOR PAIN. NO SIGNS OF DISTRESS, FAMILY AT BEDSIDE. WILL CONTINUE TO MONITOR.
[2019-08-13 03:47] VITALS: BP 110/58
[2019-08-13 05:17] LABS: ALBUMIN 4.6 g/dL (3.4-5.0); CALCIUM 8.9 mg/dL (8.5-10.1); CREATININE 2.1 mg/dL (0.7-1.3); PHOSPHORUS 2.6 mg/dL (2.5-4.9); POTASSIUM 4.7 mmol/L (3.5-5.1)
--- NOTE | 2019-08-13 05:57 | NUR ---
assessment completed. pt a&ox4. pt pain was not very well controlled with current pain regimen. fentanyl and oxycodone were given. pain meds worked but did not last very long. pt was having some difficulty breathing last night. pt's lungs sounds course and wheezes especially in the right anterior lung. pt was put on 2l nc and albuterol 2.5 orders recieved. pt stated he felt a little better after recieving the first dose. following POC. pt is going for a paracentesis this morning and possible transfer [facility]hab[facility]
[2019-08-13 08:03] VITALS: BP 121/63
[2019-08-13 14:31] VITALS: BP 123/55
--- NOTE | 2019-08-13 15:33 | NUR ---
SW reviewed chart and spoke with attending physician. Pt to have paracentesis today. SW discussed case with [facility] clinical rehabilitation aide, who states they will have a bed for pt tomorrow. Pt will d/c to [facility] tomorrow. Pt is aware and in agreement with discharge plan. SW is following to assist as needed with discharge planning.
[2019-08-13 15:35] LABS: HEMATOCRIT 31.4 % (42.0-52.0); HEMOGLOBIN 10.3 gm/dL (14.0-18.0); MCH 31.9 pg (26.0-34.0); MCHC 32.7 g/dL (28.0-37.0); MCV 97.5 fL (80.0-100.0); RBC 3.23 mil/uL (4.50-6.00); RDW 15.6 % (10.5-14.5)
[2019-08-13 16:27] LABS: BE(vivo) -5.2 mmol/L (-2 to +3); HCO3 18.7 mmol/L (22.0-26.0); PCO2 30.7 mmHg (35.0-45.0); PO2 75.2 mmHg (80.0-100.0); pH 7.402 (7.360-7.450); sO2 95.3 % (92.0-98.0)
--- NOTE | 2019-08-13 16:35 | NUR ---
PT REMAINS ON 2L NC THIS SHIFT, REPORTS SOB. RECEIVED PARACENTESIS, U/S REPORTED THAT PT HAD 2.5L REMOVED IN PROCEDURE. PT ABDOMEN REMAINS DISTENDED & TENDER. PROVIDER NOTIFIED ORDERS PLACED AND FOLLOWED, AWAITING RESULTS. PT REPORTS PAIN PARTIALLY MANAGED WITH MEDS ORDERED. PT UNABLE TO PARTICIPATE WITH THERAPIES THIS SHIFT R/T SOB & ASCITES. REPORTS DECREASED APPETITE WELL. FALL PRECAUTIONS IN PLACE, CALLS APPROPRIATELY FOR ASSISTANCE. SPOUSE AT BEDSIDE.
[2019-08-13 19:55] VITALS: BP 118/55
[2019-08-14] VITALS (11 sets, daily range): BP systolic 119–144; BP diastolic 54–64
--- NOTE | 2019-08-14 04:45 | NUR ---
ASSUMED CARE AROUDND 190. AXOX3. AT BEDSIDE. ABD KUB SHOWED ILEUS. CALLED [employer]SEMBLER COMPUTER SYSTEMS DESIGN ANALYST FOR AND OBTAINED ORDER FOR SENNA AND FIRST DOSE GIVEN. EDUCATED PT AND ABOUT IMPORTANCE OF BOWEL REGIMEN WHILE ON NARCOTIC PAIN MEDICATION. LATER ON, NOTICED PT HAD LABORED BREATHING AND INCREASED RESPIRATION RIGHT AFTER TRANSFERRING FROM CHAIR TO BED. ALSO BEFORE TRASFERRING TO BED, NOTICED PT SEEMED LIKE EXPERIENCING SLEEP APNEA. PER , PT USES CPAP AT HOME. ALSO NOTICED EXPIRATORY WHEEZING. CALLED [employer] BAT[employer] ASSEMBLER COMPUTER SYSTEMS DESIGN ANALYST FOR AND OBTAINED ORDER FOR CPAP,PRN BREATHING TX CHANGED TO Q2. BROUGHT CPAP MACHINE FROM HOME D/T PT C/O DISCOMFORT WITH HOSPIAL PROVIDED CPAP MACHINE. CONT PULSE OX MONITORING. PAIN MANAGED PER MD ORDER. NO S/S ACUTE DISTRESS NOTED OR REPORTED AT THIS TIME. WILL CONT TO MONITOR FOR ANY CHANGES IN CONDITION.
[2019-08-14 05:30] LABS: HEMATOCRIT 28.2 % (42.0-52.0); HEMOGLOBIN 9.3 gm/dL (14.0-18.0); MCH 32.6 pg (26.0-34.0); MCHC 33.1 g/dL (28.0-37.0); MCV 98.5 fL (80.0-100.0); RBC 2.86 mil/uL (4.50-6.00); RDW 15.6 % (10.5-14.5); WBC 10.2 thou/uL (4.0-11.0)
[2019-08-14 05:45] LABS: ALBUMIN 5.2 g/dL (3.4-5.0); CALCIUM 9.4 mg/dL (8.5-10.1); CREATININE 2.2 mg/dL (0.7-1.3); PHOSPHORUS 3.4 mg/dL (2.5-4.9)
--- NOTE | 2019-08-14 07:26 | NUR ---
RN RECIEVED CRISTIAN, PATIENT HAVING INCREASED SOB. BREATHIBNG TREATMENT GIVEN, DR. ANTON ANDERSON.
[2019-08-14 09:34] LABS: BE(vivo) -5.3 mmol/L (-2 to +3); HCO3 20.6 mmol/L (22.0-26.0); PCO2 41.9 mmHg (35.0-45.0); PO2 81.4 mmHg (80.0-100.0); sO2 95.1 % (92.0-98.0)
--- NOTE | 2019-08-14 10:03 | NUR ---
PATIENT IN ICU FROM [facility] THIS MORNING, ON HOME CPAP. VITALS STABLE, PATIENT USING ACCESORY MUSCLES TO BREATH. DR. WALTON IN TO SEE PATIENT SHORTLY AFTER ARRIVAL TO ICU AND PATIENT PLACED ON BIPAP. CONSULT CALLED TO DR. DEXTER, ABG AND CHEST XRAY COMPLETED. FAMILY AT THE BEDSIDE AND UPDATED ON POC BY DR. WALTON.
--- NOTE | 2019-08-14 12:38 | NUR ---
SW reviewed chart and spoke with nursing and attending physician. Pt was transferred to ICU this morning due to change in status. Pt was placed on bipap. [facility] rehab consultant updated. SW is following to assist as needed with discharge planning.
[2019-08-14 14:57] LABS: BE(vivo) -4.3 mmol/L (-2 to +3); HCO3 20.6 mmol/L (22.0-26.0); PO2 82.8 mmHg (80.0-100.0); pH 7.364 (7.360-7.450); sO2 95.9 % (92.0-98.0)
--- NOTE | 2019-08-14 15:59 | NUR ---
PATIENT AND FAMILY EXPRESSED WISHES FOR COMFORT MEASURES THIS AFTERNOON. DR. DEXTER AND DR. WALTON NOTIFED AND ORDERS RECEIVED AND PATIENT WISHES FOR DNR STATUS. BIPAP OFF AND MORPHINE AND ATIVAN ADMINISTERED FOR DYSPNEA. FAMILY AT THE BEDSIDE. DR. JIN CALLED BACK RE: CONSULT AND WILL NOT BE ABLE TO VISIT WITH PATIENT/FAMILY TILL TOMORROW AFTERNOON.
--- NOTE | 2019-08-14 16:18 | NUR ---
Pt TRANSFERRED TO ICU. WILL PLACE Pt ON HOLD AND RESTART Pt WHEN HE IS MEDICALLY STABLE AND ORDERS RECEIVED
--- NOTE | 2019-08-14 18:13 | NUR ---
PATIENT CONTINUES TO BE ON COMFORT CARE, FAMILY AT THE BEDSIDE
--- NOTE | 2019-08-14 20:00 | NUR ---
ASSUMED CARE OF PT. ON COMFORT CARE. VERY LABORED BREATHING. MORPHINE AND ATIVAN PRN COMFORT.NONRESPONSIVE. ALL FAMILY AT BEDSIDE. WILL CONT TO MONITOR.
--- NOTE | 2019-08-14 20:30 | NUR ---
PT ASYSTOLE. NO BP CREPE MAKER PULSE NO RESP. SEE REPORT FOR FURTHER INFO.
== END 2019-08-14 20:30 | DRG 205 ==
LOC: ER 15:01 → 4W 17:18 → EROBS 17:18 → 4W 17:18 → ICU 08-14 09:21
PROVIDERS: Emergency Medicine; Hospitalist; Internal Medicine Pulmonary Disease; Nurse Practitioner; ADMIT Internal Medicine
PROC: 0HQ0XZZ Repair Scalp Skin, External Approach (ICD-10-PCS; principal; 2019-08-07)
PROC: 0W9G3ZZ Drainage of Peritoneal Cavity, Percutaneous Approach (ICD-10-PCS; 2019-08-08)
PROC: 0W9G3ZZ Drainage of Peritoneal Cavity, Percutaneous Approach (ICD-10-PCS; 2019-08-13)
PROC: 5A09357 Assistance with Respiratory Ventilation, Less than 24 Consecutive Hours, Continuous Positive Airway Pressure (ICD-10-PCS; 2019-08-14)
DX: S22.32XA Fracture of one rib, left side, initial encounter for closed fracture (principal); E43 Unspecified severe protein-calorie malnutrition; J69.0 Pneumonitis due to inhalation of food and vomit; G92 Toxic encephalopathy; N17.9 Acute kidney failure, unspecified; E87.1 Hypo-osmolality and hyponatremia; R18.8 Other ascites; I69.351 Hemiplegia and hemiparesis following cerebral infarction affecting right dominant side; I12.9 Hypertensive chronic kidney disease with stage 1 through stage 4 chronic kidney disease, or unspecified chronic kidney disease; K72.90 Hepatic failure, unspecified without coma; E87.5 Hyperkalemia; W01.0XXA Fall on same level from slipping, tripping and stumbling without subsequent striking against object, initial encounter; Y93.89 Activity, other specified; Y92.59 Other trade areas as the place of occurrence of the external cause; Y99.8 Other external cause status; I25.10 Atherosclerotic heart disease of native coronary artery without angina pectoris; E78.5 Hyperlipidemia, unspecified; K74.60 Unspecified cirrhosis of liver; S01.01XA Laceration without foreign body of scalp, initial encounter; N18.9 Chronic kidney disease, unspecified; E86.9 Volume depletion, unspecified; E11.22 Type 2 diabetes mellitus with diabetic chronic kidney disease; G89.29 Other chronic pain; Z95.1 Presence of aortocoronary bypass graft; Z94.7 Corneal transplant status; I25.2 Old myocardial infarction; Z95.5 Presence of coronary angioplasty implant and graft; Z79.82 Long term (current) use of aspirin; Z79.899 Other long term (current) drug therapy; Z47.89 Encounter for other orthopedic aftercare; Z66 Do not resuscitate; Z51.5 Encounter for palliative care
CPT/HCPCS: 10040; 10078